=== PATIENT | male | born 1990 ===

== ENCOUNTER → 2019-12-05 | Outpatient (REF) | payer OTHER ==
[2019-12-05 23:59] LABS: CHLAMYDIA DNA AMPLIFICATION NEGATIVE (NEGATIVE); GC DNA AMPLIFICATION NEGATIVE (NEGATIVE)
== END ==
LOC: M LAB REF 22:22
PROVIDERS: ATTEND Physician Assistant
DX: R36.9 Urethral discharge, unspecified (principal)